=== PATIENT | female | born 1985 | race Caucasian/White ===

== ENCOUNTER 2020-12-19 03:45 | Emergency (ER) | payer MEDICAID ==
[~2020-12-19] VITALS: Ht 152.4 cm; Wt 74.8 kg
[2020-12-19 04:02] VITALS: BP 101/56
--- NOTE | 2020-12-19 04:03 | NUR ---
TO BED AMBULATORY
[2020-12-19] MEDS ORDERED: NACL 0.9% 1,000 ML IV ONE ×2 (04:15→05:10)
[2020-12-19] MEDS ORDERED: ACETAMINOPHEN 325 MG TAB PO ONE (04:15)
[2020-12-19] MEDS ORDERED: ACETAMINOPHEN EXTRA STRENGTH 500 MG TAB PO ONE (04:20)
--- NOTE | 2020-12-19 04:22 | NUR ---
Dr. Soni examining patient.
--- NOTE | 2020-12-19 04:30 | NUR ---
35 Y/O FEMALE C/O RT FLANK PAIN. PT STATES 10/10 SHARP PAIN. WITH C/O OF VAGINAL PAIN, FEVER, DIZZINESS, AND PAINFUL URINATION SINCE TUESDAY. COVID POSITIVE LAST OCTOBER. PT TOOK IBUPROFEN AT 0300HOURS WITH SOME RELIEF. MEDHX: CHEY BAKER
[2020-12-19 04:42] LABS: APPEARANCE,URINE HAZY (CLEAR); BILIRUBIN,URINE 1+ (NEGATIVE); BLOOD, URINE 1+ (NEGATIVE); COLOR,URINE YELLOW (YELLOW); LEUKOCYTE ESTERASE ,URINE 3+ (NEGATIVE); NITRITE, URINE POSITIVE (NEGATIVE); UGLUCOSE NEGATIVE (NEGATIVE)
--- NOTE | 2020-12-19 04:43 | NUR ---
BLOOD LABS COLLECTED AND WALKED OVER TO LAB AT THIS TIME
[2020-12-19] MEDS ORDERED: cefTRIAXone 1,000 MG VIAL ONE (04:45)
[2020-12-19 04:55] LABS: BASOPHILS % (AUTO) 0.2 % (0.0-2.0); EOSINOPHILS % (AUTO) 0.1 % (0.0-4.0); HEMOGLOBIN 11.9 g/dL (12.0-16.0); LYMPHOCYTES # (AUTO) 0.4 K/uL (2.5-16.5); LYMPHOCYTES % (AUTO) 2.3 % (20.5-51.1); MEAN CORPUSCULAR HEMOGLOBIN 28 pg (27-31); MEAN CORPUSCULAR HGB CONC 33 g/dL (33-37); MEAN CORPUSCULAR VOLUME 84.2 fL (80-94); MONOCYTES # (AUTO) 0.9 K/uL (0.8-1.0); MONOCYTES % (AUTO) 5.2 % (1.7-9.3); NEUTROPHILS # (AUTO) 15.2 K/uL (1.8-7.7); NEUTROPHILS % (AUTO) 92.2 % (42.2-75.2); PLATELET COUNT (AUTO) 307 K/uL (140-450); RED BLOOD CELL COUNT(AUTO) 4.28 MIL/uL (4.20-5.40); RED CELL DISTRIBUTION WIDTH 14.9 % (11.6-13.7); WHITE BLOOD COUNT (AUTO) 16.4 K/uL (4.8-10.8)
[2020-12-19 04:59] LABS: RBC,URINE 0-5 /HPF (0-5); WBC,URINE TOO MANY TO COUNT /HPF (0-5)
[2020-12-19 05:00] LABS: URINE AMORPHOUS URATE 1+ /HPF (None Seen)
[2020-12-19 05:01] LABS: ANION GAP 16.3 (8-16); CARBON DIOXIDE 22.2 mmol/L (21-32); CREATININE 1.2 mg/dL (0.6-1.3); POTASSIUM 3.5 mmol/L (3.5-5.1)
--- NOTE | 2020-12-19 05:04 | NUR ---
PT TAKEN TO CT SCAN VIA W/C
--- NOTE | 2020-12-19 05:14 | NUR ---
PT RETURN FROM CT
[2020-12-19 06:24] VITALS: BP 106/61
== END 2020-12-19 06:24 | disposition home or self-care (01) ==
LOC: MED 03:45
DX: N12 Tubulo-interstitial nephritis, not specified as acute or chronic (principal)
CPT/HCPCS: 36415; 71045; 74176; 80048; 81001; 81025; 85025; 87086; 96365; 99285; J0696; J7060